=== PATIENT | female | born 1945 ===

== ENCOUNTER 2018-01-19 08:39 | Day surgery (SDC) | payer MEDICARE, MEDICAID ==
[2018-01-18 13:45] VITALS: BMI 27.2
[2018-01-19] MEDS ORDERED: Lactated Ringer's 1,000 ML IV ONE (11:45)
[2018-01-19] MEDS ORDERED: Propofol 10 mg/ml Inj (20 ML) ONE (11:46)
[2018-01-19] MEDS ORDERED: Labetalol 25mg/5ml Syringe ONE (12:10)
[2018-01-19] MEDS ORDERED: Lidocaine Hydrochloride 5 ML INJ ONE (12:10)
[2018-01-19 13:28] VITALS: O2SAT 100
[2018-01-19 13:58] VITALS: BP 138/61; PULSE 68; RESP 21; TEMP 98
== END 2018-01-19 13:55 | disposition home or self-care (01) ==
LOC: C.ENDO 08:39
PROVIDERS: ATTEND Internal Medicine Gastroenterology
DX: K62.5 Hemorrhage of anus and rectum (principal); D12.2 Benign neoplasm of ascending colon; D12.5 Benign neoplasm of sigmoid colon; K57.30 Diverticulosis of large intestine without perforation or abscess without bleeding; K64.8 Other hemorrhoids
CPT/HCPCS: 45380; 45385; 88305; J2704; J7120